=== PATIENT | male | born 1950 | race Caucasian/White ===

== ENCOUNTER 2021-06-09 14:17 | Emergency (ER) | payer MEDICARE, OTHER ==
[2021-06-09 15:16] LABS: #Eosinphils 0.2 thou/uL (0.0-0.7); #Lymphocytes 2.2 thou/uL (1.20-3.40); #Neutrophils 10.3 thou/uL (1.40-6.50); %Basophils 0.2 % (0.0-1.0); %Eosinophils 1.7 % (0.0-10.0); %Monocytes 7.5 % (0.0-10.0); %Neutrophils 74.7 % (42.0-75.0); Hemoglobin 15.6 g/dL (14.0-18.0); Mean Corpuscular Hemoglobin 31.7 pg (27.0-31.0); Mean Corpuscular Volume 96.1 fL (78.0-98.0); Mean Platelet Volume 7.3 fL (7.4-10.4); Platelet Count 177 thou/uL (130-400); RBC Distribution Width 12.4 % (11.5-14.5); Red Blood Cell (RBC) Count 4.91 mill/uL (4.70-6.10); White Blood Cell (WBC) Count 13.8 thou/uL (4.8-10.8)
[2021-06-09 15:41] LABS: Actual Bicarbonate (HCO3v) 20 mEq/L (22-28); Analyzer IN Cardio ER; Base Excess -2.6 mEq/L (-2.0 to +3.0); Calcium, Ionized (venous) 0.94 mmol/L (1.16-1.32); Chloride (VBG) 105 mmol/L (98-106); Hemoglobin (Hb) 16.3 g/dL (12.6-17.4); Potassium (VBG) 3.76 mmol/L (3.70-5.30); Sodium 133.7 mmol/L (133-146); pH (venous) 7.44 (7.32-7.43)
[2021-06-09 15:43] LABS: ALT (SGPT) 17 U/L (8-55); AST (SGOT) 25 U/L (5-34); Albumin 3.6 g/dL (3.4-4.8); Alcohol Less than 10 mg/dL (Less than 10); Alkaline Phosphatase 92 U/L (40-110); Anion Gap 14 mmol/L (10-20); BUN (Urea Nitrogen) 8 mg/dL (8.4-25.7); CK (CPK) 66 U/L (30-200); Calc. Creatinine Clearance 0 mL/min (70-130); Calcium 9.2 mg/dL (7.8-10.44); Carbon Dioxide 24 mmol/L (23-31); Chloride 104 mmol/L (98-107); Globulin 3.8 g/dL (2.4-3.5); Glucose 93 mg/dL (83-110); Lipase 32 U/L (8-78); Magnesium 2.4 mg/dL (1.6-2.6); Potassium 3.8 mmol/L (3.5-5.1); Protein, Total 7.4 g/dL (5.8-8.1); Salicylate Less than 8.0 mg/dL (15.0-30.0); Sodium 138 mmol/L (136-145)
[2021-06-09 16:01] LABS: SARS-CoV-2 NAA Rapid Test Not Detected (NotDetected)
== END 2021-06-09 16:09 | disposition short-term general hospital (02) ==
LOC: ERS 14:17
DX: I71.02 Dissection of abdominal aorta (principal); J44.9 Chronic obstructive pulmonary disease, unspecified; F17.210 Nicotine dependence, cigarettes, uncomplicated
CPT/HCPCS: 36430; 71275; 74174; 80053; 80307; 82550; 82805; 83605; 83690; 83735; 83880; 84484; 85025; 86850; 86900; 86901; 86920; 93005; 99285; P9016; U0002; 36415